=== PATIENT | female | born 1945 | race Caucasian/White ===

== ENCOUNTER 2020-10-12 03:01 | Emergency (ER) | payer MEDICARE, BC ==
[~2020-10-12] VITALS: Ht 165.1 cm; Wt 68.9 kg
--- NOTE | 2020-10-12 03:02 | NUR ---
PT AAOX4. BIBRA 99 FROM HOME C/O ALLERGIC REACTION X5HRS S/P EATING A SANDWHICH +SWOLLEN TONGUE NOTED. PT SAT 97% ON ROOM AIR, RR EVEN AND UNLABORED. PT PLACED IN BED 5 ON MONITOR AND PULSE OX. IV INITIATED RAC 18G, BLOOD WORK COLLECTED, SENT TO LAB. ER AT BEDSIDE FOR EVAL. AWAITING ORDERS.
[2020-10-12] MEDS ORDERED: EPINEPHRINE (1:1000) 1 MG/ML AMPUL ONE (03:10)
[2020-10-12] MEDS ORDERED: FAMOTIDINE/PF INJ 20 MG/2 ML VIAL IV ONE ×2 (03:15→03:30)
[2020-10-12] MEDS ORDERED: diphenhydrAMINE HCL 50 MG/ML VIAL ONE (03:15)
[2020-10-12] MEDS ORDERED: methylPREDNISolone SOD SUCC 125 MG/2ML VIAL ONE (03:15)
[2020-10-12 03:23] LABS: BASOPHILS % (AUTO) 0.8 % (0.0-2.0); EOSINOPHILS % (AUTO) 3.1 % (0.0-6.0); HEMATOCRIT 34 % (33-45); HEMOGLOBIN 11.5 g/dL (11.5-14.8); LYMPHOCYTES # (AUTO) 1.5 /CMM (0.8-4.8); LYMPHOCYTES % (AUTO) 26.4 % (20.0-44.0); MEAN CORPUSCULAR HGB CONC 34 g/dl (31.0-36.0); MEAN CORPUSCULAR VOLUME 92 fL (82-100); MONOCYTES # (AUTO) 0.6 /CMM (0.1-1.30); MONOCYTES % (AUTO) 10.5 % (2.0-12.0); NEUTROPHILS # (AUTO) 3.4 /CMM (1.8-8.9); NEUTROPHILS % (AUTO) 59.2 % (43.0-81.0); PLATELET COUNT (AUTO) 225 /CMM (150-450); RED BLOOD CELL COUNT(AUTO) 3.74 MIL/uL (4.0-5.2); WHITE BLOOD COUNT (AUTO) 5.7 K/uL (4.3-11.0)
[2020-10-12] MEDS ORDERED: EPINEPHRINE (1:1000) MDV 30 MG/30ML VIAL SUBCUT ONE (03:30)
[2020-10-12] MEDS ORDERED: methylPREDNISolone SOD SUCC 125 MG/2ML VIAL IV ONE (03:30)
[2020-10-12] MEDS ORDERED: IV NS 0.9% 1,000 ML BAG IV ONE (03:30)
[2020-10-12] MEDS ORDERED: diphenhydrAMINE HCL 50 MG/ML VIAL IV ONE (03:30)
[2020-10-12 03:35] LABS: ALBUMIN 4.3 g/dL (3.4-5.0); BILIRUBIN,DIRECT 0.1 mg/dL (0.0-0.2); BILIRUBIN,TOTAL 0.3 mg/dL (0.2-1.0); CALCIUM, SERUM 9.8 mg/dL (8.5-10.1); CREATININE 1.3 mg/dL (0.6-1.3); POTASSIUM 4.4 mmol/L (3.5-5.1); TOTAL PROTEIN, SERUM 8.2 g/dL (6.4-8.2)
--- NOTE | 2020-10-12 03:40 | NUR ---
PT'S SPEECH IMPROVING.
--- NOTE | 2020-10-12 03:42 | NUR ---
PT REFUSING COVID SWAB, ER MD AWARE.
--- NOTE | 2020-10-12 03:59 | NUR ---
PER PT, DOES NOT WANT TO BE ADMITTED. PT AGREES TO STAY IN THE ED FOR OBSERVATION.
--- NOTE | 2020-10-12 04:00 | NUR ---
SPOKE TO PT'S FOR AN UPDATE.
[2020-10-12] MEDS ORDERED: DIPH25CA83 PO (04:58)
[2020-10-12] MEDS ORDERED: PRED50TA PO (04:58)
[2020-10-12] MEDS ORDERED: EPIN0.3A4 IM (04:58)
[2020-10-12] MEDS ORDERED: FAMO-131 PO (04:58)
--- NOTE | 2020-10-12 04:58 | NUR ---
Patient does not wish to proceed with medical care recommended by Dr. Roscoe Motta. Patient given information related to possible complications, up to and including , which could occur as a result of leaving the hospital at this time. Patient verbalizes understanding of risks involved due to leaving against medical advice. Patient has signed AMA form.
--- NOTE | 2020-10-12 05:07 | NUR ---
IV removed. Catheter intact and site benign. Pressure and 4x4 applied to site. No bleeding noted.
--- NOTE | 2020-10-12 05:07 | NUR ---
Written and verbal after care instructions given. Patient verbalizes understanding of instruction and RX. Pt ambulated out of ED. Able to speak in full sentences.
[2020-10-12 05:08] VITALS: BP 131/81
== END 2020-10-12 05:09 | disposition left against medical advice (07) ==
LOC: ER 03:06
DX: T78.09XA Anaphylactic reaction due to other food products, initial encounter (principal); T78.3XXA Angioneurotic edema, initial encounter; E11.9 Type 2 diabetes mellitus without complications; Z79.899 Other long term (current) drug therapy
CPT/HCPCS: 36415; 71045; 80048; 80076; 85025; 85610; 86850; 87081; 93005; 96361; 96372; 96374; 96375; 99291; J0171; J1200; J2930; J3490; J7030

== ENCOUNTER 2021-07-21 08:57 | Emergency (ER) | payer MEDICARE, BC ==
[~2021-07-21] VITALS: Ht 162.6 cm; Wt 65.8 kg
[~2021-07-21 08:57] MED LIST: DIPH25CA83 PO; EPIN0.3A4 IM; FAMO-131 PO; PRED50TA PO
[2021-07-21] MEDS ORDERED: EPINEPHRINE (1:1000) 1 MG/ML AMPUL ONE (09:53)
[2021-07-21] MEDS ORDERED: methylPREDNISolone SOD SUCC 125 MG/2ML VIAL ONE (09:54)
[2021-07-21] MEDS ORDERED: diphenhydrAMINE HCL 50 MG/ML VIAL ONE (09:54)
[2021-07-21] MEDS ORDERED: FAMOTIDINE/PF INJ 20 MG/2 ML VIAL IV ONE ×2 (09:54→10:00)
[2021-07-21] MEDS ORDERED: EPINEPHRINE (1:1000) MDV 30 MG/30ML VIAL SUBCUT ONE (10:00)
[2021-07-21] MEDS ORDERED: IV NS 0.9% 1,000 ML BAG IV ONE (10:00)
[2021-07-21] MEDS ORDERED: methylPREDNISolone SOD SUCC 125 MG/2ML VIAL IV ONE (10:00)
[2021-07-21] MEDS ORDERED: diphenhydrAMINE HCL 50 MG/ML VIAL IV ONE (10:00)
[2021-07-21 11:20] VITALS: BP 120/75
[2021-07-21] MEDS ORDERED: DIPH25CA83 PO (11:39)
[2021-07-21] MEDS ORDERED: EPIN0.3A4 IM (11:39)
[2021-07-21] MEDS ORDERED: FAMO-131 PO (11:39)
[2021-07-21] MEDS ORDERED: PRED50TA PO (11:39)
--- NOTE | 2021-07-21 11:42 | NUR ---
IV removed. Catheter intact and site benign. Pressure and 4x4 applied to site. No bleeding noted. Patient discharged to home in stable condition. Written and verbal after care instructions given. Patient verbalizes understanding of instruction.
== END 2021-07-21 12:15 | disposition home or self-care (01) ==
LOC: ER 08:59
DX: T78.3XXA Angioneurotic edema, initial encounter (principal); I10 Essential (primary) hypertension; E11.9 Type 2 diabetes mellitus without complications; Z79.899 Other long term (current) drug therapy
CPT/HCPCS: 96361; 96372; 96374; 96375; 99291; J0171 ×2; J1200; J2930; J3490; J7030